=== PATIENT | male | born 1970 | race African-American/Black ===

== ENCOUNTER 2019-10-30 12:25 | Emergency (ER) | payer MEDICAID, OTHER ==
[~2019-10-30] VITALS: Ht 165.1 cm; Wt 72.6 kg
[~2019-10-30 12:25] MED LIST: AUGMENTIN TAB875 MG ORAL
--- NOTE | 2019-10-30 12:52 | Emergency Room Report ---
History of Present Illness General Chief Complaint: Earache Source: Patient Present Illness HPI 49-year-old male with no significant past medical history here complaining of difficulty hearing in the right ear. Denies any pain at the affected ear. Denies any trauma, cough and congestion, shortness of breath. Denies any foreign body in the ear. Patient sitting comfortably with normal vital signs. Is afebrile and oxygenation within normal limits. Denies abdominal pain, nausea vomiting diarrhea. Has not taken medication for symptom relief. Denies any vertigo and dizziness. Denies tinnitus. Allergies: Coded Allergies: No Known Allergies (Unverified , 09/14/14) COVID-19 Screening Contact w/high risk pt: No Recent Travel to affected area: No Experienced COVID-19 symptoms?: No Patient History Past Medical History: see triage record Past Surgical History: none Pertinent Family History: none Immunizations: UTD Reviewed Nursing Documentation: PMH: Agreed; PSxH: Agreed Nursing Documentation-PMH Past Medical History: No Stated History Review of Systems All Other Systems: negative except mentioned in HPI Physical Exam Vital Signs Date Time Temp Pulse Resp B/P (MAP) Pulse Ox O2 Delivery O2 Flow Rate FiO2 10/30/19 12:30 98.1 75 18 130/91 (104) 96 Room Air Sp02 EP Interpretation: reviewed, normal General Appearance: well appearing, no apparent distress Head: normocephalic, atraumatic ENT: normal voice, other - Cerumen impaction right ear Neck: full range of motion, supple Respiratory: no respiratory distress, speaking full sentences Cardiovascular #1: normal inspection, no edema, no murmur Gastrointestinal: non tender, soft Rectal: deferred Musculoskeletal: normal inspection Neurologic: alert, oriented Psychiatric: normal inspection, mood/affect normal Skin: no rash Lymphatic: normal inspection Medical Decision Making PA Attestation All my diagnosis and treatment plans were reviewed ad discussed with my supervising physician Dr. Arshad Diagnostic Impression: Primary Impression: Cerumen impaction ER Course 49-year-old male with no significant past medical history here complaining of difficulty hearing in the right ear. Denies any pain at the affected ear. Denies any trauma, cough and congestion, shortness of breath. Denies any foreign body in the ear. Patient sitting comfortably with normal vital signs. Is afebrile and oxygenation within normal limits. Denies abdominal pain, nausea vomiting diarrhea. Has not taken medication for symptom relief. Denies any vertigo and dizziness. Denies tinnitus. Ddx considered but are not limited to: strep pharyngitis, URI, tonsillitis, peritonsillar abscess, influenza, otitis media, otitis externa, cerumen impaction Vital signs: are WNL, pt. is afebrile H&PE are most consistent with: Cerumen impaction ORDERS: [facility] ED INTERVENTIONS: None required at this time. DISCHARGE: At this time pt. is stable for d/c to home. Will provide printed patient care instructions, and any necessary prescriptions. Care plan and follow up instructions have been discussed with the patient prior to discharge. Unable to visualize TM due to cerumen impaction right ear. Follow-up primary doctor for possible ear lavage. If worsening symptoms return to the emergency room Last Vital Signs Date Time Temp Pulse Resp B/P (MAP) Pulse Ox O2 Delivery O2 Flow Rate FiO2 10/30/19 12:30 98.1 75 18 130/91 (104) 96 Room Air Disposition: HOME, SELF-CARE Condition: Stable Scripts Carbamide Peroxide (DEBROX) 15 Ml Drops 10 DROP RIGHT EAR TWICE A DAY for 4 Days, #10 ML 0 Refills Prov: Jennifer Ray 10/30/19 Patient Instructions: Cerumen Impaction Jennifer Ray Oct 30, 2019 12:52
[2019-10-30] MEDS ORDERED: DEBROX15 M1 RIGHT EAR (12:54)
[2019-10-30 13:01] VITALS: BP 130/97
--- NOTE | 2019-10-30 13:01 | NUR ---
ED Nurse Note: Pt cleared by health care Provider for discharge. DC instructions/prescription was given and explained to pt and verbalized understanding of teachings. All medical devices such as ID band removed. Pt is AAO x4, ambulatory and left with all personal belongings.
== END 2019-10-30 13:05 | disposition home or self-care (01) ==
LOC: EMR 13:04
DX: H61.21 Impacted cerumen, right ear (principal)
CPT/HCPCS: 99282